=== PATIENT | male | born 1945 | race Caucasian/White ===

== ENCOUNTER 2023-05-25 10:22 | Inpatient (IN) ==
[2023-05-25] MEDS ORDERED: NovoLIN R (or HumuLIN R) SC PRN (14:36)
[2023-05-25 14:50] VITALS: BMI 22.7
[2023-05-25 15:03] LABS: LYMPHOCYTES # (AUTO) 1.9 X10^3/uL (1.3-2.9); MEAN PLATELET VOLUME 11.4 fL (7.4-11.0); MONOCYTES # (AUTO) 0.4 x10^3/uL (0.3-0.8); MONOCYTES % (AUTO) 4.3 % (0.0-13.0); NEUTROPHILS % (AUTO) 71.3 % (42.0-75.0); RED CELL DISTRIBUTION WIDTH 13.6 % (11.6-16.5)
[2023-05-25 15:16] LABS: ALANINE AMINOTRANSFERASE 13 Units/L (12-78); ALBUMIN 3.4 g/dL (3.4-5.0); ALKALINE PHOSPHATASE 51 Units/L (46-116); ASPARTATE AMINO TRANSFERASE 9 Units/L (15-37); BLOOD UREA NITROGEN 13 mg/dL (7-18); CALCIUM 8.8 mg/dL (8.5-10.1); CARBON DIOXIDE 27.3 mmol/L (21-32); CHLORIDE 107 mmol/L (98-107); COR NA(FOR HYPERGLY) 145 mmol/L (136-145); CREATININE 0.89 mg/dL (0.70-1.30); GLUCOSE 125 mg/dL (65-99); POTASSIUM 4.1 mmol/L (3.5-5.1); SODIUM 144 mmol/L (136-145); TOTAL PROTEIN 6.7 g/dL (6.4-8.2); eGFR NON BLACK RACES > 60 (>60)
[2023-05-25 15:20] LABS: BASOPHILS # (AUTO) 0.1 X10^3/uL (0.0-0.1); BASOPHILS % (AUTO) 0.5 % (0.2-1.0); EOSINOPHILS # (AUTO) 0.6 x10^3/uL (0.0-0.2); EOSINOPHILS % (AUTO) 5.6 % (0.9-2.9); HEMATOCRIT 48.6 % (42.0-54.0); HEMOGLOBIN 16.5 g/dL (13.5-18.0); LYMPHOCYTES % (AUTO) 18.3 % (21.0-51.0); MEAN CORPUSCULAR HEMOGLOBIN 32.7 pg (27.0-34.0); MEAN CORPUSCULAR VOLUME 96.1 fL (80.0-100.0); NEUTROPHILS # (AUTO) 7.2 x10^3/uL (2.2-4.8); PLATELET COUNT 122 X10^3/uL (150.0-450.0); RED BLOOD COUNT 5.06 X10^6/uL (4.7-6.0); WHITE BLOOD COUNT 10.1 X10^3/uL (3.6-10.0)
[2023-05-25] MEDS: HEPARIN SODIUM INJ 5000 UNITS IVP ONE (15:38)
[2023-05-25] MEDS: LR 1,000 ML IV 1,000 ML IV SCH (15:40)
[2023-05-25] MEDS: HEPARIN SODIUM IN D5W 25,000 UNITS/500 ML BAG IV PRN (15:40)
--- NOTE | 2023-05-25 17:08 | EKG ---
Test Reason : pre op Blood Pressure : */* mmHG Vent. Rate : 82 BPM Atrial Rate : 82 BPM P-R Int : 210 ms QRS Dur : 80 ms QT Int : 352 ms P-R-T Axes : 61 -24 45 degrees QTc Int : 411 ms Sinus rhythm with marked sinus arrhythmia with 1st degree AV block Possible Anterior infarct , age undetermined Abnormal ECG No previous ECGs available Confirmed by David Morales ([id number]) on 05/26/2023 7:39:42 AM Referred By: Confirmed By: David Morales
--- NOTE | 2023-05-25 19:05 | CT ---
EXAM:CTA AORTA WITH RUNOFFHISTORY:CRITICAL ISCHEMIA LEFT LEG;COMPARISON:None.TECHNIQUE:Axial CT images of the abdomen, pelvis and lower extremities were obtained prior to and after the administration of 150 mL IV contrast during the arterial phase. Images were reformatted with a 3D angiographic technique for further evaluation.Radiation dose: 1039.58 mGy-cm total DLPFINDINGS:Aorta: Atherosclerotic changes with no aneurysm. No clinically significant stenosis or occlusion.Mesenteric arteries/Celiac trunk: No clinically significant stenosis, occlusion or aneurysm.Renal arteries: No clinically significant stenosis, occlusion or aneurysm.Right iliac arteries: Atherosclerotic changes. No clinically significant stenosis, occlusion or aneurysm.Left iliac arteries: Atherosclerotic changes. No clinically significant stenosis, occlusion or aneurysm.Right femoral arteries/popliteal artery: Trpi-es-[id number] atherosclerotic changes. No clinically significant stenosis, occlusion or aneurysm.Left femoral arteries/popliteal artery: Teht-cf-[id number] atherosclerotic changes. No clinically significant stenosis, occlusion or aneurysm.Right infrapopliteal arteries: Atherosclerotic changes. No occlusion or aneurysm. 3 vessel runoff.Left infrapopliteal arteries: Atherosclerotic changes. No occlusion or aneurysm. 3 vessel runoff.Lung bases are clear.No acute osseous abnormality.Stomach and proximal small bowel appear normal.Mild low-attenuation enlargement of the adrenal glands could represent adrenal adenomas versus adrenal hyperplasia.Liver, spleen and pancreas are unremarkable.Gallbladder appears normal.No biliary dilatation.Homogeneous enhancement of the kidneys without hydronephrosis or hydroureter.No urinary calculus identified.Urinary bladder is unremarkable.Colonic diverticulosis without diverticulitis.Otherwise, unremarkable appearance of the small and large bowel.No evidence of acute appendicitis.Nonspecific enlargement of the prostate gland.No pneumoperitoneum.No free intra-abdominal fluid.No adenopathy.No soft tissue gas. Soft tissues are grossly unremarkable in the distal lower extremities.IMPRESSION:1. No acute intra-abdominal abnormality identified.2. Krwr-gv-ckreqaju atherosclerotic changes from the aorta to the trifurcated vessels of the lower extremities with no clinically significant stenosis, occlusion or aneurysm.3. Colonic diverticulosis without diverticulitis.4. Nonspecific enlargement of the prostate gland.THIS IS AN ELECTRONICALLY VERIFIED FINAL REPORT05/25/2023 7:02 PM - Electronically signed by Julio Randhawa MD
[2023-05-25] MEDS: OMNIPAQUE 350 mg/mL 100 mL BTL 100 ML ONE (20:23)
[2023-05-25] MEDS: OMNIPAQUE 350 mg/mL 50 mL BTL 50 ML ONE (20:24)
[2023-05-25] MEDS: CRESTOR TAB 10 MG PO SCH (20:52)
[2023-05-25] MEDS: NEURONTIN CAP 300 MG PO SCH (20:54)
[2023-05-25] MEDS: AMBIEN PO PRN (20:55)
--- NOTE | 2023-05-25 22:45 | RAD ---
EXAM:CHEST, 1 VIEWHISTORY:pre op; CRITICAL ISCHEMIA LEFT LEGCOMPARISON:No relevant prior studies available.TECHNIQUE:Chest radiographic imaging, AP portable projection, 1 imageFINDINGS:No cardiomegaly.No focal airspace disease.No pleural effusion.No pneumothorax.No acute osseous abnormality.IMPRESSION:No imaging findings of acute cardiopulmonary disease.THIS IS AN ELECTRONICALLY VERIFIED FINAL REPORT05/25/2023 10:42 PM - Electronically signed by Julio Randhawa MD
[2023-05-26] MEDS: FLOMAX PO SCH (08:55)
[2023-05-26] MEDS: ZESTRIL TAB 10 MG PO SCH (08:56)
[2023-05-26] MEDS: PROSCAR PO SCH (08:56)
[2023-05-26] MEDS: NS 1,000 ML IV 1,000 ML ONE (11:53)
[2023-05-26] MEDS: NS 100 ML IV 100 ML ONE (12:01)
[2023-05-26] MEDS: ANCEF VIAL 1 GRAM ONE (12:01)
[2023-05-26] MEDS: FENTANYL VIAL INJ 100 mcg ONE (12:08)
[2023-05-26] MEDS: VERSED ONE (12:08)
[2023-05-26] MEDS: PEPCID 20 MG VIAL ONE (12:08)
[2023-05-26] MEDS: ZOFRAN INJ 4 MG VIAL ONE (12:08)
[2023-05-26] MEDS: DIPRIVAN VIAL 40 ML ONE (12:08)
[2023-05-26] MEDS: VISIPAQUE 100 ML ONE (12:31)
[2023-05-26] MEDS: HEPARIN SODIUM IN D5W 75,000 UNITS/1,500 ML BAG ONE (12:31)
[2023-05-26] MEDS: MARCAINE 0.5% ONE (12:31)
[2023-05-26] MEDS: VISIPAQUE 50 ML ONE (12:31)
--- NOTE | 2023-05-26 13:21 | OR.IMMED ---
IMMEDIATE POST-OP NOTE Immediate Post-Op Note Date of surgery/procedure: 05/26/23 Pre-Op Diagnosis: critical ischemia left leg Post-Op Diagnosis: critical ischemia left leg, total occusion left common iliac artery, severe stenosis right common iliac artery Procedure: aortogram, arterkiogram left leg , stenting left common illiac artery, stenting left external iliac artery, stenting right common iliac artery Description of Procedure: see dictation Surgeon/Percussion Teacher: Nasrin Findings: as above Estimated Blood Loss: 100 cc Complications: none Progress Notes: retrum floor, stop heparin drip, begin 1800 calorie ADA diet, probably d/c home later today.
[2023-05-26] MEDS: PERCOCET TAB 5/325 MG PO PRN (13:45)
[2023-05-26 15:44] VITALS: O2SAT 97
[2023-05-26 15:47] VITALS: TEMP 97.8
[2023-05-26 16:49] VITALS: BP 131/70; PULSE 69; RESP 14
--- NOTE | 2023-05-26 16:51 | W.DIS.FURT ---
Summary of Discharge Discharge Summary of Date Date of Exam: 05/26/23 Admission Date Date of Admission: 05/25/23 Admission Diagnosis Hospital Course: This is a 77 year old male seen by me originally in the office on May 25 complaining of bilateral lower extremity rest pain with significant dependent rubor .Patient does use tobacco on a daily basis and is diabetic .He had lower extremity ultrasound showing monophasic flow throughout the entire left leg and a early wound over the left fifth toe with significant rubor. I could not palpate a pulse in the left groin. He had significant rubor of the right leg as well and the dopplers on this side showed biphasic flow throughout.He was admitted to the hospital and placed on a Heparin drip .CT angiogram as read by the radilologist did not show significant occlusion of any vessel however this did not correspond to the physical exam on the left leg .He was taken to the operating suite today with aortogram showing complete occlusion of the left common and left external iliac artery which was not visualized on the CT angiogram. He also had severe stenosis of the right common iliac artery .He had stenting of both common iliac arteries and the left external iliac artery. We re-established good flow and palpable vessels distally of both ankles .He will be discharged home on his usual medications plus aspirin 81 milligrams daily and Xarelto 2.5 milligrams BID. He will follow up with me in Week 1 week Vital Signs: Vital Signs (72 hours) 05/25/23 13:40 05/25/23 13:40 05/25/23 13:40 Temperature 98.4 F 98.4 F Pulse Rate 87 Pulse Rate [Bilateral Radial] 87 Respiratory Rate 22 20 Blood Pressure 161/72 Blood Pressure [Left Arm] 161/72 O2 Sat by Pulse Oximetry 98 98 Oxygen Delivery Method Room Air Room Air Room Air FIO2% 05/25/23 15:00 05/25/23 17:00 05/25/23 18:00 Temperature Pulse Rate Pulse Rate [Bilateral Radial] 81 93 H 81 Respiratory Rate 14 16 16 Blood Pressure Blood Pressure [Left Arm] 145/73 157/67 163/72 O2 Sat by Pulse Oximetry 97 97 97 Oxygen Delivery Method Room Air Room Air Room Air FIO2% 05/25/23 19:39 05/25/23 19:00 05/25/23 20:00 Temperature 98.8 F Pulse Rate Pulse Rate [Bilateral Radial] 90 86 Respiratory Rate 20 22 Blood Pressure Blood Pressure [Left Arm] 165/71 145/69 O2 Sat by Pulse Oximetry 98 96 Oxygen Delivery Method Room Air Room Air Room Air FIO2% 21 21 05/25/23 21:00 05/25/23 22:00 05/25/23 23:00 Temperature Pulse Rate Pulse Rate [Bilateral Radial] 80 81 75 Respiratory Rate 19 22 16 Blood Pressure Blood Pressure [Left Arm] 133/60 121/71 131/62 O2 Sat by Pulse Oximetry 95 95 94 L Oxygen Delivery Method Room Air Room Air Room Air FIO2% 21 21 21 05/26/23 00:00 05/26/23 01:00 05/26/23 02:00 Temperature 97.8 F Pulse Rate Pulse Rate [Bilateral Radial] 75 95 H 96 H Respiratory Rate 18 16 16 Blood Pressure Blood Pressure [Left Arm] 131/62 131/63 154/72 O2 Sat by Pulse Oximetry 96 95 96 Oxygen Delivery Method Room Air Room Air Room Air FIO2% 21 21 21 05/26/23 03:00 05/26/23 04:00 05/26/23 05:00 Temperature 97.6 F Pulse Rate Pulse Rate [Bilateral Radial] 74 77 74 Respiratory Rate 14 16 16 Blood Pressure Blood Pressure [Left Arm] 154/77 151/70 145/67 O2 Sat by Pulse Oximetry 96 94 L 96 Oxygen Delivery Method Room Air Room Air Room Air FIO2% 21 21 21 05/26/23 06:00 05/26/23 07:00 05/26/23 08:00 Temperature 98.1 F Pulse Rate Pulse Rate [Bilateral Radial] 74 71 75 Respiratory Rate 16 14 14 Blood Pressure Blood Pressure [Left Arm] 169/74 138/74 156/71 O2 Sat by Pulse Oximetry 94 L 93 L 95 Oxygen Delivery Method Room Air Room Air Room Air FIO2% 21 05/26/23 07:00 05/26/23 09:00 05/26/23 10:00 Temperature Pulse Rate Pulse Rate [Bilateral Radial] 86 73 Respiratory Rate 21 18 Blood Pressure Blood Pressure [Left Arm] 152/70 143/68 O2 Sat by Pulse Oximetry 96 97 Oxygen Delivery Method Room Air Room Air Room Air FIO2% 05/26/23 11:00 05/26/23 11:50 05/26/23 13:45 Temperature Pulse Rate 84 Pulse Rate [Bilateral Radial] 75 Respiratory Rate 18 16 20 Blood Pressure 170/96 Blood Pressure [Left Arm] 143/68 O2 Sat by Pulse Oximetry 97 96 Oxygen Delivery Method Room Air Room Air FIO2% 05/26/23 13:25 05/26/23 13:40 05/26/23 13:55 Temperature 98.0 F Pulse Rate Pulse Rate [Bilateral Radial] 76 68 64 Respiratory Rate 12 14 15 Blood Pressure Blood Pressure [Left Arm] 132/74 133/69 146/65 O2 Sat by Pulse Oximetry 95 96 98 Oxygen Delivery Method Room Air Room Air Room Air FIO2% 05/26/23 14:10 05/26/23 15:10 05/26/23 14:45 Temperature 97.8 F Pulse Rate Pulse Rate [Bilateral Radial] 65 77 Respiratory Rate 12 21 20 Blood Pressure Blood Pressure [Left Arm] 140/65 146/72 O2 Sat by Pulse Oximetry 97 97 Oxygen Delivery Method Room Air Room Air FIO2% Labs: Laboratory Last Values WBC 10.1 X10^3/uL (3.6-10.0) H 05/25/23 14:55 RBC 5.06 X10^6/uL (4.7-6.0) 05/25/23 14:55 Hgb 16.5 g/dL (13.5-18.0) 05/25/23 14:55 Hct 48.6 % (42.0-54.0) 05/25/23 14:55 MCV 96.1 fL (80.0-100.0) 05/25/23 14:55 MCH 32.7 pg (27.0-34.0) 05/25/23 14:55 MCHC 34.0 g/dL (33.0-35.0) 05/25/23 14:55 RDW 13.6 % (11.6-16.5) 05/25/23 14:55 Plt Count 122 X10^3/uL (150.0-450.0) L 05/25/23 14:55 MPV 11.4 fL (7.4-11.0) H 05/25/23 14:55 Neut % (Auto) 71.3 % (42.0-75.0) 05/25/23 14:55 Lymph % (Auto) 18.3 % (21.0-51.0) L 05/25/23 14:55 [place] % (Auto) 4.3 % (0.0-13.0) 05/25/23 14:55 Eos % (Auto) 5.6 % (0.9-2.9) H 05/25/23 14:55 Baso % (Auto) 0.5 % (0.2-1.0) 05/25/23 14:55 Neut # (Auto) 7.2 x10^3/uL (2.2-4.8) H 05/25/23 14:55 Lymph # (Auto) 1.9 X10^3/uL (1.3-2.9) 05/25/23 14:55 [place] # (Auto) 0.4 x10^3/uL (0.3-0.8) 05/25/23 14:55 Eos # (Auto) 0.6 x10^3/uL (0.0-0.2) H 05/25/23 14:55 Baso # (Auto) 0.1 X10^3/uL (0.0-0.1) 05/25/23 14:55 Absolute Nucleated RBC 0.1 /100WBC 05/25/23 14:55 APTT 87.9 SECONDS (22.9-36.5) H 05/26/23 10:10 PTT Comment - 05/26/23 10:10 Sodium 144 mmol/L (136-145) 05/25/23 14:55 Corrected Sodium 145 mmol/L (136-145) 05/25/23 14:55 Potassium 4.1 mmol/L (3.5-5.1) 05/25/23 14:55 Chloride 107 mmol/L (98-107) 05/25/23 14:55 Carbon Dioxide 27.3 mmol/L (21-32) 05/25/23 14:55 BUN 13 mg/dL (7-18) 05/25/23 14:55 Creatinine 0.89 mg/dL (0.70-1.30) 05/25/23 14:55 Est GFR (MDRD) Af Amer > 60 (>60) 05/25/23 14:55 Est GFR (MDRD) Non-Af > 60 (>60) 05/25/23 14:55 Glucose 125 mg/dL (65-99) H 05/25/23 14:55 POC Glucose (mg/dL) 141 mg/dL (65-99) H 05/26/23 05:07 Calcium 8.8 mg/dL (8.5-10.1) 05/25/23 14:55 Corrected Calcium TNP 05/25/23 14:55 Total Bilirubin 0.30 mg/dL (0.2-1.0) 05/25/23 14:55 AST 9 Units/L (15-37) L 05/25/23 14:55 ALT 13 Units/L (12-78) 05/25/23 14:55 Alkaline Phosphatase 51 Units/L (46-116) 05/25/23 14:55 Total Protein 6.7 g/dL (6.4-8.2) 05/25/23 14:55 Albumin 3.4 g/dL (3.4-5.0) 05/25/23 14:55 Globulin 3.3 g/dL (2.5-4.5) 05/25/23 14:55 Albumin/Globulin Ratio 1.0 Ratio (1.1-2.1) L 05/25/23 14:55 Reason For Visit: CRITICAL LLE ISCHEMIA Discharge Date Discharge Date: 05/26/23 Discharge Diagnosis All Active Problems (Updated 05/26/23 @ 16:40 by Primitivo Alexandra) Atherosclerosis of [place] arteries of extremities with rest pain, right leg (Acute) Critical limb ischemia of left lower extremity (Acute) Plan of Treatment: Continue with present treatment and follow up plan. Pt is to keep follow up appointment as instructed and take medications as ordered. Discharge Medications Discharge Medications: No Known Allergies Allergy (Verified 05/25/23 15:09) CONTINUE taking the following medications alogliptin 25 mg tablet 25 mg PO DAILY 05/25/23 [History] finasteride 5 mg tablet 5 mg PO DAILY 05/25/23 [History] gabapentin 300 mg tablet 300 mg PO BID 05/25/23 [History] hydrocodone 10 mg-acetaminophen 325 mg tablet 10 - 325 tab PO Q8H pain 05/25/23 [History] lisinopril 20 mg tablet 20 mg PO DAILY 05/25/23 [History] metformin 1,000 mg tablet 1,000 mg PO TID 05/25/23 [History] multivitamin 1 tab PO DAILY 05/25/23 [History] rosuvastatin 20 mg tablet 20 mg PO DAILY 05/25/23 [History] tamsulosin 0.4 mg capsule (Flomax) 0.4 mg PO DAILY 05/25/23 [History] zolpidem 10 mg tablet (Ambien) 10 mg PO HS PRN Sleep 05/25/23 [History]a aspirin 81 mg daily Xarelto 2.5 mg BID Discharge Disposition Assessment: see hospital course Discharge Plan Discharge Plan Hospital Course: This is a 77 year old male seen by me originally in the office on May 25 complaining of bilateral lower extremity rest pain with significant dependent rubor .Patient does use tobacco on a daily basis and is diabetic .He had lower extremity ultrasound showing monophasic flow throughout the entire left leg and a early wound over the left fifth toe with significant rubor. I could not palpate a pulse in the left groin. He had significant rubor of the right leg as well and the dopplers on this side showed biphasic flow throughout.He was admitted to the hospital and placed on a Heparin drip .CT angiogram as read by the radilologist did not show significant occlusion of any vessel however this did not correspond to the physical exam on the left leg .He was taken to the operating suite today with aortogram showing complete occlusion of the left common and left external iliac artery which was not visualized on the CT angiogram. He also had severe stenosis of the right common iliac artery .He had stenting of both common iliac arteries and the left external iliac artery. We re-established good flow and palpable vessels distally of both ankles .He will be discharged home on his usual medications plus aspirin 81 milligrams daily and Xarelto 2.5 milligrams BID. He will follow up with me in Week 1 week Patient Disposition: 01 HOME, SELF-CARE Condition: Stable Health Concerns: Post Hospitalization: new medications and changes needed to prevent readmission or further decline. Pt educated and given instructions on all concerns. Care Plan Goals: Problem: Pain/Alteration in Comfort Goal: Improve/ Resolve Pain; Achieve Pain Tolerance Instructions: Take pain medications as prescribed. Contact your primary care provider if your pain is unrelieved or worsens. Follow up with primary care provider as directed. Plan of Treatment: Continue with present treatment and follow up plan. Pt is to keep follow up appointment as instructed and take medications as ordered. Assessment: see hospital course Prescription drug monitoring program results: PDMP was not reviewed Prescriptions: New Xarelto 2.5 mg tablet 2.5 mg PO BID Qty: 180 0RF aspirin 81 mg tablet,chewable 81 mg PO QDAY Qty: 120 0RF Continued alogliptin 25 mg Tablet 25 mg PO DAILY rosuvastatin 20 mg Tablet 20 mg PO DAILY Rx Instructions: 0.5 tab daily gabapentin 300 mg Tablet 300 mg PO BID zolpidem [Ambien] 10 mg Tablet 10 mg PO HS PRN (Reason: Sleep) finasteride 5 mg Tablet 5 mg PO DAILY tamsulosin [Flomax] 0.4 mg Capsule 0.4 mg PO DAILY hydrocodone-acetaminophen 10-325 mg Tablet 10 - 325 tab PO Q8H metformin 1,000 mg Tablet 1,000 mg PO TID Rx Instructions: with meals lisinopril 20 mg Tablet 20 mg PO DAILY Rx Instructions: 0.5 tab daily multivitamin Tablet 1 tab PO DAILY Follow ups/Referrals Follow ups/Referrals: Primitivo Alexandra [STAFF PHYSICIAN] - 06/03/23 11:00 am Instructions Instructions: Steps to Quit Smoking, Ekju-gg-Dlep, Endovascular Therapy for Peripheral Vascular Disease, Care After Stand Alone Forms: Post Hospital Follow Up Care
--- NOTE | 2023-05-30 12:27 | DR.OPNOTE ---
OP NOTE Pre-Op Diagnosis: Critical ischemia left leg, left iliac artery obstruction Post-Op Diagnosis: L iliac artery complete occlusion, R common iliac artery severe stenosis Procedure Date Date Of Procedure: 05/26/23 Procedure: PROCEDURE: DIAGNOSTIC AORTOGRAM , ARTERIOGRAM LEFT LEG , STENTING LEFT COMMON ILIAC ARTERY, STENTING LEFT EXTERNAL ILIAC ARTERY, STENTING RIGHT COMMON ILIAC ARTERY NARRATIVE : The patient was taken to the operative suite and placed in the supine position. Both groins and the entire left leg were prepped and draped in sterile fashion .The patient was administered intravenous sedation supervised by myself .Time out for the procedure obtained .Ultrasound used to identify the right common femoral artery and the skin overlying and infiltrated with 0.5% Marcaine. Ultrasound used to guide puncture of the right femoral artery and a 0.012 inch wire placed .Incision made over the wire at the skin edge and a micro sheath placed over the guide wire into the right common femoral artery .Small guide wire exchanged for a 0.035 inch Advantage [place] wire and the micro sheath exchanged for a 5 [place] vascualr sheath .Omni catheter placed over the guide wire into the aorta and diagnostic aortogram carried out showing completely occluded left common iliac artery and left external iliac artery. There was also suggestion of severe disease of the right external iliac artery. At this point ultrasound was used to identify the left femoral artery and the skin overlying and infiltrated with 0.5% Marcaine .Ultrasound used to guide puncture of the left femoral artery and a 0.012 inch wire placed. Incision made over this wire at the skin edge with a number 11 knife blade and a micro sheath placed over the guide wire into the left femoral artery. The small wire exchanged for a 0.035 inch Advantage glide wire which was monitored to where it stopped short of the occlusion with fluoroscopy. The micro sheath exchanged for a 7 Fr vascular sheath .The 0.035 inch wire was used to traverse the complete obstruction of the left external iliac artery and left common iliac occlusions into the aorta and diagnostic aortogram carried out confirming the severe disease of the right external iliac artery .Patient given 5,000 units of IV heparin .I initially tried to place a 9 millimeter x 57 millimeter iliac stent but it would not go through the occlusion very readily therefore we dilated the occlusion with a 5 millimeter by 60 millimeter balloon and then the stent went up well all the way to the junction of the common iliac and aorta and then deployed .This was a balloon expandable stent .We then placed a 7 mm by 37 mm stent distal to the initial stent into the external iliac artery and dilated it. Follow up arteriogram performed again showing excellent flow through the left iliac artery into the leg and arteriogram carried out of the entire left leg showing no other significant disease. Over the wire on the right side we placed a 9 millimetre by 37 millimetre iliac stent and balloon dialted it . Rpeat arteriogram again showed excellent result of both sides. The heparin was not reversed. The sheaths on either side were exchanged over these 0.035 inch wires for Angio seal devices used to close the puncture of both femoral arteries .Dressing applied and the patient taken to the ICU in good condition . Type of Anesthesia: Local (0.5% Marcaine) Anesthesia Comment: plus MAC Findings: Complete occlusion left common and left external iliac arteries ,severe stenosis right common iliac artery Type of Fluids Used:: Lactated Ringers Total Amount of Fluid Infused:: 400 cc Urine output: 150cc EBL: 100cc Hardware: left common iliac artery 9mmx 57 mm stent , left external iliac artery 7mm x 37 mm, right common iliac artery 9mm x 37 mm stent Complications:: none Needle/Sponge Count:: correct Disposition/Condition: Pt. tolerated procedure without difficulty. Patient taken to CCU in stable condition.
--- NOTE | 2023-05-30 14:22 | DR.H&P ---
H&P History & Physical for Day of: H&P Date: 05/26/23 Chief Complaint Chief Complaint: B/L LE rest pain worse on the left . Allergies Allergies Allergy/AdvReac Type Severity Reaction Status Date / Time No Known Allergies Allergy Verified 05/25/23 15:09 History of Present Illness History of Present Illness: 77 year old male who presented to my office on May 25 with referral for bilateral lower extremity rest pain and lower extremity Doppler showing only monophasic waveform on the left side from the ankle down . B/L LE with significant rubor/ cyanosis bilterally. Wave forms on the right side were biphasic all the way to the ankle .Past history of significant tobacco abuse , pacemaker placement, diabetes and hypertension. Question of previously placed coronary artery stent. Admitted for heparin drip, CTA and appropriate intervention of the left leg at shonda time . Past Medical History Past Medical History: Coronary Artery Disease, Diabetes, Dyslipidemia and Hypertension Additional Medical History: tobacco abuse, pacemakere in place Past Surgical History Surgical History: Other Additional Surgical History: Large lipoma excised right groin in the past. Family History Family Medical History: Diabetes Mellitus Social History Does patient currently use any type of tobacco product: Yes Type of Tobacco Use: Cigars Alcohol Use: None Drug Use: None Medications Home Medications: Home Medications Medication Instructions Recorded Confirmed Type alogliptin 25 mg tablet 25 mg PO DAILY 05/25/23 05/25/23 History finasteride 5 mg tablet 5 mg PO DAILY 05/25/23 05/25/23 History gabapentin 300 mg tablet 300 mg PO BID 05/25/23 05/25/23 History hydrocodone 10 mg-acetaminophen 10 - 325 tab PO Q8H pain 05/25/23 05/25/23 History 325 mg tablet lisinopril 20 mg tablet 20 mg PO DAILY 05/25/23 05/25/23 History metformin 1,000 mg tablet 1,000 mg PO TID 05/25/23 05/25/23 History multivitamin 1 tab PO DAILY 05/25/23 05/25/23 History rosuvastatin 20 mg tablet 20 mg PO DAILY 05/25/23 05/25/23 History tamsulosin 0.4 mg capsule (Flomax) 0.4 mg PO DAILY 05/25/23 05/25/23 History zolpidem 10 mg tablet (Ambien) 10 mg PO HS PRN Sleep 05/25/23 05/25/23 History Labs 05/25/23 14:55 05/25/23 14:55 Labs: Laboratory WBC 10.1 X10^3/uL (3.6-10.0) H 05/25/23 14:55 RBC 5.06 X10^6/uL (4.7-6.0) 05/25/23 14:55 Hgb 16.5 g/dL (13.5-18.0) 05/25/23 14:55 Hct 48.6 % (42.0-54.0) 05/25/23 14:55 MCV 96.1 fL (80.0-100.0) 05/25/23 14:55 MCH 32.7 pg (27.0-34.0) 05/25/23 14:55 MCHC 34.0 g/dL (33.0-35.0) 05/25/23 14:55 RDW 13.6 % (11.6-16.5) 05/25/23 14:55 Plt Count 122 X10^3/uL (150.0-450.0) L 05/25/23 14:55 MPV 11.4 fL (7.4-11.0) H 05/25/23 14:55 Neut % (Auto) 71.3 % (42.0-75.0) 05/25/23 14:55 Lymph % (Auto) 18.3 % (21.0-51.0) L 05/25/23 14:55 [place] % (Auto) 4.3 % (0.0-13.0) 05/25/23 14:55 Eos % (Auto) 5.6 % (0.9-2.9) H 05/25/23 14:55 Baso % (Auto) 0.5 % (0.2-1.0) 05/25/23 14:55 Neut # (Auto) 7.2 x10^3/uL (2.2-4.8) H 05/25/23 14:55 Lymph # (Auto) 1.9 X10^3/uL (1.3-2.9) 05/25/23 14:55 [place] # (Auto) 0.4 x10^3/uL (0.3-0.8) 05/25/23 14:55 Eos # (Auto) 0.6 x10^3/uL (0.0-0.2) H 05/25/23 14:55 Baso # (Auto) 0.1 X10^3/uL (0.0-0.1) 05/25/23 14:55 Absolute Nucleated RBC 0.1 /100WBC 05/25/23 14:55 APTT 87.9 SECONDS (22.9-36.5) H 05/26/23 10:10 PTT Comment - 05/26/23 10:10 Sodium 144 mmol/L (136-145) 05/25/23 14:55 Corrected Sodium 145 mmol/L (136-145) 05/25/23 14:55 Potassium 4.1 mmol/L (3.5-5.1) 05/25/23 14:55 Chloride 107 mmol/L (98-107) 05/25/23 14:55 Carbon Dioxide 27.3 mmol/L (21-32) 05/25/23 14:55 BUN 13 mg/dL (7-18) 05/25/23 14:55 Creatinine 0.89 mg/dL (0.70-1.30) 05/25/23 14:55 Est GFR (MDRD) Af Amer > 60 (>60) 05/25/23 14:55 Est GFR (MDRD) Non-Af > 60 (>60) 05/25/23 14:55 Glucose 125 mg/dL (65-99) H 05/25/23 14:55 POC Glucose (mg/dL) 141 mg/dL (65-99) H 05/26/23 05:07 Calcium 8.8 mg/dL (8.5-10.1) 05/25/23 14:55 Corrected Calcium TNP 05/25/23 14:55 Total Bilirubin 0.30 mg/dL (0.2-1.0) 05/25/23 14:55 AST 9 Units/L (15-37) L 05/25/23 14:55 ALT 13 Units/L (12-78) 05/25/23 14:55 Alkaline Phosphatase 51 Units/L (46-116) 05/25/23 14:55 Total Protein 6.7 g/dL (6.4-8.2) 05/25/23 14:55 Albumin 3.4 g/dL (3.4-5.0) 05/25/23 14:55 Globulin 3.3 g/dL (2.5-4.5) 05/25/23 14:55 Albumin/Globulin Ratio 1.0 Ratio (1.1-2.1) L 05/25/23 14:55 Review of Systems Constitutional: See HPI Eyes: No Symptoms Reported ENT: No Symptoms Reported Respiratory: No Symptoms Reported Cardiovascular: See HPI Gastrointestinal: No Symptoms Reported Genitourinary: No Symptoms Reported Musculoskeletal: See HPI Skin: No Symptoms Reported and See HPI Oriented: Normal, Time, Person and Place Eyes: Normal Ear: Normal Nose: Normal Throat: Normal Respiratory: Clear Throughout Cardiovascular: Normal and Other (No pulses palpable from the left groin down , palpable right femoral pulse, absent distal pulses right ankle ) : Normal Auscultation: Bowel Sounds: Normal Tenderness: Normal Skin: Other (rubor both feet , mostly dependent ) Musculoskeletal: Normal Psychiatric: Normal Mood Description: Calm Affect: Normal Speech Pattern: Clear Assessment/Plan (1) Atherosclerosis of [place] arteries of extremities with rest pain, left leg: Status: Acute Plan: Admit, heparin drip and CTA (2) Chronic ischemic heart disease, unspecified: Status: Acute Plan: home medications (3) Pacemaker: Status: Acute Plan: observe, stable (4) Tobacco abuse: Status: Acute Plan: nicotine patch (5) Essential (primary) hypertension: Status: Acute Plan: home medications (6) Type 2 diabetes mellitus without complications: Status: Acute Plan: sliding scale insulin
--- NOTE | 2023-05-31 22:43 | DR.UPDATE ---
H&P UPDATE (1) Atherosclerosis of [place] arteries of extremities with rest pain, left leg: History and Physical Update: History and Physical reviewed and patient examined. Changes noted: NO Yes with the following: (2) Chronic ischemic heart disease, unspecified: History and Physical Update: History and Physical reviewed and patient examined. Changes noted: NO Yes with the following: (3) Pacemaker: History and Physical Update: History and Physical reviewed and patient examined. Changes noted: NO Yes with the following: (4) Tobacco abuse: History and Physical Update: History and Physical reviewed and patient examined. Changes noted: NO Yes with the following: (5) Essential (primary) hypertension: History and Physical Update: History and Physical reviewed and patient examined. Changes noted: NO Yes with the following: (6) Type 2 diabetes mellitus without complications: History and Physical Update: History and Physical reviewed and patient examined. Changes noted: NO Yes with the following: Review Yes Any changes to H&P?: No Changes noted:: none
== END 2023-05-26 17:00 | disposition home or self-care (01) | DRG 254 ==
LOC: ICU 13:11
PROVIDERS: ADMIT Surgery; ATTEND Surgery
DX: Z72.0 Tobacco use; I10 Essential (primary) hypertension; R94.31 Abnormal electrocardiogram [ECG] [EKG]; I25.10 Atherosclerotic heart disease of native coronary artery without angina pectoris; R79.1 Abnormal coagulation profile; Z95.0 Presence of cardiac pacemaker; I70.223 Atherosclerosis of native arteries of extremities with rest pain, bilateral legs; E11.65 Type 2 diabetes mellitus with hyperglycemia; E78.5 Hyperlipidemia, unspecified